=== PATIENT | female | born 1985 | race Caucasian/White ===

== ENCOUNTER 2018-08-11 08:55 | Emergency (ER) | payer OTHER ==
[~2018-08-11] VITALS: Ht 162.6 cm; Wt 64.4 kg
[2018-08-11 09:13] VITALS: Ht 162.6 cm; Wt 64.4 kg
[2018-08-11 10:08] LABS: CALCIUM 8.8 mg/dL (8.5-10.1); CARBON DIOXIDE 26.1 mmol/L (21-32); CHLORIDE SERUM 107 mmol/L (98-107); CREATININE SERUM 0.8 mg/dL (0.6-1.0); GFR1 > 60 mL/min; GLUCOSE SERUM 94 mg/dL (74-106); SODIUM SERUM 141 mmol/L (136-145)
[2018-08-11 10:13] LABS: ALBUMIN 3.9 g/dL (3.4-5.0); ALKALINE PHOSPHATASE 45 U/L (46-116); ALT/SGPT 23 U/L (14-59); AST/SGOT 15 U/L (15-37); BILIRUBIN TOTAL 0.5 mg/dL (0.20-1.00); LIPASE 203 IU/L (73-393); TOTAL PROTEIN, SERUM 7.2 g/dL (6.4-8.2)
[2018-08-11 10:15] LABS: BASOPHIL % 0.3 % (0-2); PLATELET COUNT 328 x10^3mcL (130-400)
[2018-08-11 12:24] VITALS: BP 97/59
== END 2018-08-11 12:24 | disposition home or self-care (01) ==
LOC: ED 08:55
PROVIDERS: Emergency Medicine
DX: R10.13 Epigastric pain (principal); R16.0 Hepatomegaly, not elsewhere classified
CPT/HCPCS: 36415; Q9967

== ENCOUNTER 2019-03-17 05:03 | Emergency (ER) | payer OTHER ==
[~2019-03-17] VITALS: Ht 162.6 cm; Wt 64.0 kg
[2019-03-17 05:50] VITALS: BP 118/82
== END 2019-03-17 08:47 | disposition home or self-care (01) ==
LOC: ED 05:03
DX: M54.40 Lumbago with sciatica, unspecified side (principal); R10.9 Unspecified abdominal pain; Z88.0 Allergy status to penicillin
CPT/HCPCS: J3010; Q0162

== ENCOUNTER 2020-07-13 17:07 | Emergency (ER) | payer OTHER ==
[~2020-07-13] VITALS: Ht 162.6 cm; Wt 66.9 kg
[2020-07-13 17:11] VITALS: BP 96/59; Ht 162.6 cm; Wt 66.9 kg
== END 2020-07-13 21:09 | disposition left against medical advice (07) ==
LOC: ED 17:07
DX: Z53.21 Procedure and treatment not carried out due to patient leaving prior to being seen by health care provider (principal)